=== PATIENT | female | born 1960 | race Caucasian/White ===

== ENCOUNTER 2022-01-01 18:01 | Emergency (ER) | payer BC ==
[2022-01-01] MEDS: Sodium Chloride 0.9% 1,000 ML IV SCH (18:25)
[2022-01-01 18:51] LABS: CHLORIDE,CL 102 mmol/L (98-107); SODIUM,NA 136 mmol/L (136-145)
[2022-01-01 18:58] LABS: ANION GAP 13.1 mmol/L (5-15)
== END 2022-01-01 19:40 | disposition home or self-care (01) ==
LOC: VM.ED 18:01
DX: R53.81 Other malaise (principal); E03.9 Hypothyroidism, unspecified; Z79.899 Other long term (current) drug therapy; Z88.8 Allergy status to other drugs, medicaments and biological substances
CPT/HCPCS: 80053; 81001; 84484; 85025; 86140; 87086; 87088; 87186; 99283; 99284; J7030